=== PATIENT | male | born 1975 | race Caucasian/White ===

== ENCOUNTER 2016-06-08 07:24 | Emergency (ER) | payer BC, OTHER, SELFPAY ==
[~2016-06-08] VITALS: Ht 182.9 cm; Wt 170.1 kg
[2016-06-08] MEDS ORDERED: PRINIVIL20 MG PO (08:31)
[2016-06-08] MEDS ORDERED: ELIQUIS5 MG PO ×2 (08:31→08:32)
[2016-06-08] MEDS ORDERED: CONTRAVE ER 8-1 EACH PO (08:33)
== END 2016-06-08 09:40 | disposition short-term general hospital (02) ==
LOC: ER 07:24 → ULTR 07:25 → ER 09:40
DX: S80.12XA Contusion of left lower leg, initial encounter (principal); K59.00 Constipation, unspecified; I10 Essential (primary) hypertension; Z88.8 Allergy status to other drugs, medicaments and biological substances; Z79.899 Other long term (current) drug therapy; Z86.718 Personal history of other venous thrombosis and embolism; W22.8XXA Striking against or struck by other objects, initial encounter
CPT/HCPCS: Q9963; Q9967